=== PATIENT | female | born 1985 | race Caucasian/White ===

== ENCOUNTER 2023-12-27 12:16 | Emergency (ER) | payer BC, SELFPAY ==
[2023-12-27 12:20] VITALS: BP 145/101
[2023-12-27 12:56] VITALS: BMI 31.2
[2023-12-27 13:39] VITALS: BP 141/103
[2023-12-27 13:57] LABS: HCG, Serum Qualitative Screen Negative
[2023-12-27 14:00] VITALS: BP 132/96
[2023-12-27 14:07] LABS: % Basophils 0.3 % (0-2); % Eosinophils 0.5 % (0-6); % Immature Granulocytes 0.5 % (0-0.5); % Lymphocytes 22.5 % (20.5-51.1); % Monocytes 7.7 % (1.7-9.3); % Neutrophils 68.5 % (42.2-75.2); Absolute Monocytes 0.7 10^3/uL (0.1-0.6); Hematocrit 40.1 % (37.0-47.0); Hemoglobin 14.4 g/dL (12.0-16.0); Mean Corp Hgb Conc. 35.9 g/dL (33.0-37.0); Mean Corpuscular Hgb 30.4 pg (27.0-31.0); Mean Corpuscular Volume 84.8 fL (81.0-99.0); Mean Platelet Volume 8.8 fL (7.4-10.4); Nucleated Red Blood Cells % 0 %; Platelet Count 325 10^3/uL (130-400); Red Blood Cell Count 4.73 10^6/uL (4.20-5.40); Red Cell Dist. Width 12.7 % (11.5-14.5); White Blood Cell Count 8.7 10^3/uL (4.8-10.8)
[2023-12-27] MEDS: INDERAL 10 MG PO (14:10)
[2023-12-27 14:11] LABS: ALT (SGPT) 20 U/L (0-35); AST (SGOT) 32 U/L (14-36); Albumin 4.8 g/dl (3.5-5.0); Alkaline Phosphatase 83 U/L (38-126); Blood Urea Nitrogen 12 mg/dl (7-17); Calcium 9.9 mg/dl (8.4-10.2); Carbon Dioxide 26 mmol/L (22-30); Chloride 105 mmol/L (98-107); D-Dimer < 0.27 ug/mlFEU (0.00-0.50); Estimated Creatinine Clearance 83 ml/min; Glucose 114 mg/dl (70-99); Potassium 4.1 mmol/L (3.5-5.1); Sodium 139 mmol/L (135-145); Total Bilirubin 1.3 mg/dl (0.2-1.3); Total Protein 7.4 g/dl (6.3-8.2); eGFR > 60.00
[2023-12-27 14:13] VITALS: BP 133/103
[2023-12-27 14:22] LABS: Troponin I < 0.012 ng/ml
[2023-12-27 14:29] LABS: TSH Reflex To Free T4 1.94 uIU/ml (0.47-4.68)
--- NOTE | 2023-12-27 14:52 | ED.GENMED ---
History of Present Illness
General
Chief Complaint: Anxiety
Source: patient
Exam Limitations: none
Time Seen by Provider: 12/27/23 12:51
Nursing documentation reviewed up to this point in time: agreed with
History of Present Illness
History of Present Illness:
38-year-old female with past medical history of anxiety who presents to the emergency room for evaluation of 'feeling anxious.' Patient reports that she has a long history of generalized anxiety and has been maintained on Prozac at a steady dosage
for about 18 years. She says that she has not had any recent adjustments. She also was prescribed 0.5 mg of clonazepam for her to take as needed for severe anxiety�she says that she is only used it in the past when going on flights or other
similar anxiety inducing situations. She tells me that over the past few weeks at work she has had significant impactful changes that have affected her routine and have caused significant manage of increased anxiety. She says that since Friday
she has been an almost constant state of anxiety associated with significant tearfulness. She says that at the peak of her symptoms she feels tightness in her chest and feels like she is having trouble breathing. She says that yesterday the
symptoms were so severe that she did take a dose of her clonazepam that she says that while it did help slightly with the anxiety it made her very tired and she basically napped for the entire afternoon. Today was once again tearful and extremely
anxious and came to the emergency room for assessment. She denies any drug or alcohol use. She denies any other complaints. She denies any recent illness.
Review of Systems
Review of Systems
All Other Systems: ROS reviewed and negative except as documented in HPI and ROS
Constitutional: Denies fever or chills
Respiratory: Reports trouble breathing
Cardiac: Reports chest pain
ABD/GI: Denies abdominal pain, nausea or vomiting
: Denies flank pain
Musculoskeletal: Denies neck pain or back pain
Neurological: Denies dizzy or headache
Psychiatric: Reports anxiety; Denies depression
Phy Exam
Physical Exam
Physical Exam:
General: Awake, alert; tearful and anxious
Head: Normocephalic, atraumatic
Eyes: Conjunctiva normal
Throat: Airway intact, handling secretions
Neck: Trachea midline, supple without meningismus
Lungs: Clear to auscultation bilaterally, no wheezing, rales, rhonchi
Heart: Regular rate and rhythm, no murmurs, gallops, or rubs
Abd: Soft, non distended, nontender
Neuro: No gross deficits
Skin: no rash
Extremities: Warm well-perfused with no edema and brisk capillary refill
Scores
Heart Failure Risk
Heart Failure Risk Score: Not Applicable
Heart Score for Chest Pain Patients
STEMI patient?: Not applicable
Withdrawal Assessment of Alcohol
Withdrawal Assessment Completed?: Not applicable
Course
Orders/Labs/Results
Orders:
Orders
12/27/23 12:24
EKG [Electrocardiogram (*1)] Urgent
Reason for Study: Chest Pain
EKG- Treatment ONCE
12/27/23 13:30
Test Result ONCE
CR Chest - 2 Views Urgent
Comment:
Reason For Exam: sob,cp
12/27/23 13:39
Complete Blood Count/With Diff Urgent
Comprehensive Metabolic Panel Urgent
D-Dimer Urgent
HCG, Serum Qualitative Screen Urgent
TSH Reflex To Free T4 Urgent
Troponin I Urgent
12/27/23 13:48
Propranolol [Inderal] 10 mg PO NOW STA
Abnormal Lab Results
12/27/23
13:39
Absolute Monos (auto) 0.7 H 10^3/uL
(0.1-0.6)
Glucose 114 H mg/dl
(70-99)
12/27/23 13:39
12/27/23 13:39
Vital Signs
Initial and Last Documented VS:
Initial Vital Signs
Temp Pulse Resp BP Pulse Ox
36.8 C 98 18 145/101 98
12/27/23 12:20 12/27/23 12:20 12/27/23 12:20 12/27/23 12:20 12/27/23 12:20
Last Documented Vital Signs
Temp Pulse Resp BP Pulse Ox
36.8 C 84 16 132/96 94
12/27/23 12:20 12/27/23 15:15 12/27/23 15:15 12/27/23 15:00 12/27/23 15:15
MDM/Problems Addressed
Differential Diagnosis Includes:
Anxiety/panic, hypothyroidism, PE, ACS, pneumothorax
MDM/Problems Addressed:
38-year-old female presents for evaluation of increased anxiety over the past few days in the setting of recent changes at work. She is on Prozac long-term and has clonazepam prescribed as needed but she felt that it made her too tired yesterday.
At the peak of her symptoms she does complain of tightness in her chest and shortness of breath. Vitals are significant for hypertension but otherwise normal here. Physical exam as above. My clinical impression is that symptoms are all anxiety
related but will check screening evaluation for medical pathology�will check CBC, CMP, thyroid studies, troponin, D-dimer. Check chest x-ray. In the meantime we discussed options for breakthrough anxiety; we mentioned trialing propranolol which
would be nonsedating versus a lower dose of Klonopin. She wishes to try propranolol�she has a history of preeclampsia and borderline hypertension here and it would not be unreasonable to start this for help with blood pressure as well.
Labs reviewed: CBC unremarkable, CMP no clinically significant abnormalities. Troponin undetectable. Thyroid studies normal. D-dimer negative. hCG negative. Chest x-ray shows no acute disease. I do suspect based on clinical context as well as
negative workup as above that her symptoms are related to anxiety.
Clinical reassessment patient is feeling better after propranolol here and I do think this is a reasonable medication to start for her. She already has an outpatient psychiatrist and she indicated that she can follow-up next week to discuss further
treatment of her anxiety. We did talk about supplementing with a half dose of her currently prescribed 0.5 mg clonazepam if she needs additional relief from anxiety that is not as sedating. She feels very comfortable with this plan. Spoke about
return precautions and all questions answered.
Chronic conditions affecting care:
Anxiety
Acute Exacerbation and/or Progression of Chronic Illness:
Acutely hypertensive treated with propranolol
Acute Exacerbation and/or Progression of Chronic Illness: HTN
*Radiology
Radiology exam reviewed: preliminary read by ED provider
*Pulse Oximetry
Patient hypoxic: no
*EKG
Interpreted by ED Provider?: Yes
Heart Rate: 82
Rate: normal
Rhythm: sinus
Stella: normal axis
Interval: normal interval
QRS Pattern: normal QRS
Ischemia: T-wave inversion (Nonspecific T wave abnormalities)
*Critical Care Note
Total Time (30-74mins, 75-104mins- exclusive of procedures): Not Applicable
Data Reviewed
Review of Other/Old Records Reveals: Labs and Records
Source: patient
ED Attending Note
-
Portions of this chart may have been created with voice recognition software.� Occasional wrong word or��sound alike� substitutions may have occurred due to the inherent limitations of voice recognition software.
Discharge Plan
Departure
Patient Disposition: Home (Routine Discharge)
Date of Disposition: 12/27/23
Time of Disposition: 15:33
Patient with high blood pressure during this ER visit?: Yes
Discharge Problem:
Anxiety
Instructions: Anxiety, Adult (DC)
Referrals:
UNKNOWN - PT DOES,NOT KNOW [Family Provider] -
Activity Restrictions/Additional Instructions:
Thank you for visiting the Emergency Department at [facility].
1. Please schedule a follow up appointment as directed. Call first thing tomorrow morning to make an appointment.
2. If indicated, please take your medications as instructed and indicated on discharge paperwork.
3. If any of your symptoms do not improve, or persist, or become more severe within 6-12 hours, please return to the emergency department for further care.
4. Please return to the emergency department if you develop a headache, neck pain/stiffness, fever greater than 100.4F, chest pain, shortness of breath, persistent nausea, vomiting, slurred speech, difficulty walking, numbness/tingling, weakness,
signs of infection or any other symptoms that are worrisome to you.
Please call [phone] if you have any questions.
Interventions
Interventions:
*Risk Screen - Suicide Last Done: 12/27/23 12:20
*General Assessment Last Done: 12/27/23 12:20
*Neglect/Abuse Screening Last Done: 12/27/23 12:20
*ED COVID-19 Vaccine History Last Done: 12/27/23 12:20
ED-Psychological Assessment Last Done: 12/27/23 14:54
Discharge Date and Time
Print Language: SURINAMESE
[2023-12-27 15:00] VITALS: BP 132/96
== END 2023-12-27 15:44 | disposition home or self-care (01) ==
LOC: EMR 12:16
PROVIDERS: EMERGENCY PHYSICIAN Emergency Medicine
DX: F41.9 Anxiety disorder, unspecified (principal); I10 Essential (primary) hypertension
CPT/HCPCS: 99285; 71046; 80053; 84443; 84484; 84703; 85025; 85379; 93005

== ENCOUNTER → 2024-02-20 09:05 | Outpatient (REF) | payer BC, SELFPAY | LOC: WDC 09:05 | PROVIDERS: ATTENDING PHYSICIAN Nurse Practitioner Family | DX: N64.4 Mastodynia (principal) | CPT/HCPCS: 76642; 77062; 77066 ==